=== PATIENT | female | born 1935 | race African-American/Black ===

== ENCOUNTER 2021-10-25 19:32 | Emergency (ER) | payer MEDICARE ==
[2021-10-25 21:34] LABS: BASOPHIL 0.2 % (0-2); EOSINOPHIL 0.6 % (0-7); HCT 23.4 % (37.0-47.0); HGB 7.6 g/dl (12.5-16.0); LYMPHOCYTE 20.9 % (15-48); MCHC 32.5 g/dL (32.0-36.0); MCV 83.3 fL (78.0-100.0); MONOCYTE 6.2 % (0-12); MPV 9.4 fL (6.0-9.5); NEUTROPHIL 71.7 % (41-80); NRBC 0; PLT 360 K/uL (150-400); RBC 2.81 M/uL (4.20-5.40); RDW 17.2 % (11.5-14.0); WBC 12.5 K/uL (4.0-10.5)
[2021-10-25 21:49] LABS: ALBUMIN 2.1 g/dL (3.4-5.0); BILIRUBIN - TOTAL 0.6 mg/dL (0.2-1.0); BUN/CREAT RATIO (CALC) 22.9 RATIO; CREATININE 1.18 mg/dL (0.51-0.95); GLOBULIN (CALCULATION) 5.2 g/dL; TOTAL PROTEIN 7.3 g/dL (6.4-8.2)
[2021-10-25 22:10] LABS: CORONAVIRUS 2019 SARS-COV-2 NEGATIVE (NEGATIVE); INFLUENZA A NAA NEGATIVE (NEGATIVE)
[2021-10-25 23:02] LABS: BILIRUBIN NEGATIVE (NEGATIVE); BLOOD TRACE-INTACT Ery/uL (NEGATIVE); CLARITY CLEAR (CLEAR); COLOR YELLOW (YELLOW); GLUCOSE (U) NORMAL (NORMAL); LEUKOCYTES TRACE Leu/uL (NEGATIVE); NITRITE NEGATIVE (NEGATIVE); PROTEIN TRACE (LOW) mg/dL (NEGATIVE); SPECIFIC GRAVITY 1.025 (1.001-1.030); pH 5.5 (5.0-9.0)
[2021-10-25 23:18] LABS: BACTERIA 2+; URINARY RBC RARE
[2021-10-25 23:19] LABS: AMORPHOUS URATES CRYSTALS MODERATE
[2021-10-26 05:15] LABS: HCT 24.3 % (37.0-47.0)
[2021-10-26 09:01] LABS: RETICULOCYTE COUNT 1.2 % (1.0-2.0)
[2021-10-26 09:48] LABS: IRON % SATURATION 8.4 %SAT (20-50)
== END 2021-10-26 16:10 | disposition other institution (70) ==
LOC: FER 19:32
PROVIDERS: Emergency Medicine; Internal Medicine
DX: M25.561 Pain in right knee (principal); G89.29 Other chronic pain; L89.152 Pressure ulcer of sacral region, stage 2; N17.9 Acute kidney failure, unspecified; N39.0 Urinary tract infection, site not specified; E86.0 Dehydration; D64.9 Anemia, unspecified; R33.9 Retention of urine, unspecified; I10 Essential (primary) hypertension; F03.90 Unspecified dementia, unspecified severity, without behavioral disturbance, psychotic disturbance, mood disturbance, and anxiety; Z20.822 Contact with and (suspected) exposure to COVID-19; Z88.5 Allergy status to narcotic agent; Z79.899 Other long term (current) drug therapy
CPT/HCPCS: 36415; 70450; 73560; 73700; 80053; 81001; 82728; 83540; 83550; 85014; 85018; 85025; 86850; 86900; 86901; 86922; 87088; J1630; J7030; J7040; P9016; U0002